=== PATIENT | female | born 1955 ===

== ENCOUNTER 2019-01-05 07:10 | Day surgery (SDC) | payer MEDICARE, OTHER ==
[2019-01-05 08:17] VITALS: BMI 29.2
[2019-01-05] MEDS ORDERED: Lactated Ringer's 500 ML IV ONE ×2 (09:36→10:03)
--- NOTE | 2019-01-05 09:36 | CP.SDSHP ---
Same Day Surgery H & P - History Proposed Procedure: colonoscopy Pre-Op Diagnosis: screening for colon cancer - Previous Medical/Surgical History Cardiac: Hypertension, Other (hyperolipidemia) Endocrine/Metabolic: Diabetes, Obesity Previous Surgical History: Lap cholecystectomy - Allergies Allergies: Allergies ibuprofen Allergy (Severe, Verified 07/29/16 08:23) SWELLING - Physical Exam Vital Signs: Vital Signs 01/05/19 08:00 Temperature 98 F Pulse Rate 68 Respiratory 12 Rate Blood Pressure 108/69 O2 Sat by Pulse 98 Oximetry Mental Status: Alert & Oriented x3 Neuro: WNL Heart: WNL Lungs: WNL GI: WNL - Impression Impression: screening for colon cancer Pt. Evaluated Today:Candidate for Anesthesia & Procedure: Yes - Date & Time Date: 01/05/19 Time: 09:36 Short Stay Discharge - Short Stay Discharge Admitting Diagnosis/Reason for Visit: ENCOUNTER FOR SCREENING FOR MALIGNANT NEOPLASM OF Disposition: HOME/ ROUTINE
[2019-01-05] MEDS ORDERED: Lidocaine Hydrochloride 5 ML INJ ONE (09:38)
[2019-01-05] MEDS ORDERED: Midazolam 2 MG/2 ML VIAL ONE (09:38)
[2019-01-05] MEDS ORDERED: Propofol 10 mg/ml Inj (20 ML) ONE (09:38)
[2019-01-05] MEDS ORDERED: Lactated Ringer's 500 ML IV SCH (09:45)
[2019-01-05 11:03] VITALS: O2SAT 100
[2019-01-05 11:18] VITALS: BP 117/61; PULSE 61; RESP 20; TEMP 97.5
== END 2019-01-05 11:15 | disposition home or self-care (01) ==
LOC: C.ENDO 07:10
PROVIDERS: ATTEND Internal Medicine Gastroenterology
DX: Z12.11 Encounter for screening for malignant neoplasm of colon (principal); D12.4 Benign neoplasm of descending colon; K57.30 Diverticulosis of large intestine without perforation or abscess without bleeding; K64.1 Second degree hemorrhoids; E11.9 Type 2 diabetes mellitus without complications; I10 Essential (primary) hypertension; Z79.84 Long term (current) use of oral hypoglycemic drugs
CPT/HCPCS: 45380; 82948; 88305; J2250; J2704; J7120

== ENCOUNTER 2019-01-19 08:47 | Outpatient (CLI) | payer MEDICARE, OTHER | END 2019-01-19 08:48 | disposition home or self-care (01) | LOC: C.LAB 08:47 ==

== ENCOUNTER → 2019-01-26 | Outpatient (CLI) | payer MEDICARE, SELFPAY | LOC: C.SLEEP 18:02 | DX: G47.33 Obstructive sleep apnea (adult) (pediatric) (principal) ==